=== PATIENT | female | born 1980 | race African-American/Black ===

== ENCOUNTER 2020-08-23 13:27 | Emergency (ER) | payer MEDICAID, OTHER ==
[~2020-08-23] VITALS: Ht 154.9 cm; Wt 115.7 kg
[2020-08-23 13:28] VITALS: BP 180/87
[2020-08-23 14:21] LABS: Basophils # (auto) 0.1 10 ^3/uL (0-0.2); Hematocrit 28.8 % (36.0-46.0); Monocytes # (auto) 0.6 10 ^3/uL (0-1.3); Neutrophils # (auto) 4.3 10 ^3/uL (1.6-8.6)
[2020-08-23 14:22] LABS: Eosinophils # (auto) 0.1 10 ^3/uL (0-0.8); Eosinophils % (auto) 1.1 % (0.0-7.0); Lymphocytes # (auto) 1.4 10 ^3/uL (0.4-5.4); Lymphocytes % (auto) 21.5 % (10.0-50.0); Mean Corpuscular Hemoglobin 23.2 pg (28.0-32.0); Mean Corpuscular Hgb Conc. 31.3 g/dL (32.0-36.0); Mean Corpuscular Volume 74.3 fL (80.0-100.0); Monocytes % (auto) 9.6 % (0.0-12.0); Neutrophils % (auto) 66.8 % (37.0-80.0); Platelet Count (auto) 356 10^3/uL (140-450); Red Blood Cells 3.88 10^6/uL (4.0-5.20); White Blood Cell 6.5 10^3/uL (4.4-10.8)
[2020-08-23 14:25] LABS: Red Cell Distribution Width 20.1 % (11.8-14.3)
[2020-08-23 14:40] LABS: Albumin 3.1 g/dL (3.4-5.0); Calcium 8.5 mg/dL (8.5-10.1); Potassium 3.6 mmol/L (3.5-5.1)
[2020-08-23 14:41] LABS: Salicylate < 1.7 mg/dL (2.8-20.0)
[2020-08-23 14:44] LABS: BUN/Creatinine Ratio 13.4; Bilirubin, Total 0.2 mg/dL (0.2-1.0); Total Protein 7.9 g/dL (6.4-8.2)
[2020-08-23 14:47] LABS: Acetaminophen < 2.0 ug/mL (10-30)
== END 2020-08-23 19:00 | disposition left against medical advice (07) ==
LOC: ER 13:27
DX: M54.5 Low back pain (principal); M79.18 Myalgia, other site; R06.02 Shortness of breath; R07.9 Chest pain, unspecified
CPT/HCPCS: 36415; 71045; 80053; 80320; 80329; 85025; 93005